=== PATIENT | male | born 1925 | race Caucasian/White ===

== ENCOUNTER 2017-04-16 13:47 | Inpatient (IN) ==
[2017-04-16 14:22] LABS: Basophils # 0.1 10*3/uL (0.0-0.2); Basophils % 0.7 % (0.0-0.8); Eosinophils # 0.3 10*3/uL (0.0-0.87); Eosinophils % 3.3 % (0.00-10.9); Hematocrit 39.2 VOL% (42.0-52.0); Hemoglobin 12.9 GM/DL (14.0-18.0); Immature Granulocytes % 0.3 %; Immature Granulocytes Absolute 0.03 #; Lymphocytes # 2.2 10*3/uL (1.4-4.0); Mean Corpuscular HGB Conc 32.9 GM/DL (32-36); Mean Corpuscular Hemoglobin 31 PG (27-34); Mean Corpuscular Volume 94.2 FL (87-102); Mean Platelet Volume 10.1 FL (9.6-12.0); Monocytes # 0.8 10*3/uL (0.11-0.8); Monocytes % 9.2 % (1.7-12.7); Neutrophils # 5.6 10*3/uL (1.4-7.4); Neutrophils % 62.5 % (38.7-73.9); Platelet Count 240 T/CUMM (130-400); Red Blood Count 4.16 MC/CUMM (3.8-5.5); Red Cell Distribution Width 12.4 % (9.3-17.3)
[2017-04-16 14:52] LABS: Osmolality,Calculated 283.5 MOS/KG (273-304); Potassium 3.5 MMOL/L (3.5-5.1)
[2017-04-16] MEDS ORDERED: ASPIRIN 325 MG TABLET PO STA (14:55)
[2017-04-16] MEDS ORDERED: ASPIRIN 325 MG TABLET ONE (15:09)
[2017-04-16 16:38] LABS: Risk Ratio 3.73; VLDL CHOLESTEROL 20.6 MG/DL
[2017-04-16] MEDS: GABAPENTIN 300 MG CAPSULE PO SCH (20:58)
[2017-04-16] MEDS: clonazePAM 0.5 MG TABLET PO SCH (20:58)
[2017-04-16] MEDS: TEMAZEPAM 15 MG CAPSULE PO SCH (21:00)
[2017-04-16] MEDS ORDERED: ENOXAPARIN 60 MG/0.6 ML SYRINGE SUBCUT ONE (21:28)
[2017-04-17 07:25] LABS: Basophils # 0.1 10*3/uL (0.0-0.2); Basophils % 0.7 % (0.0-0.8); Eosinophils # 0.3 10*3/uL (0.0-0.87); Eosinophils % 3.2 % (0.00-10.9); Hematocrit 40.3 VOL% (42.0-52.0); Hemoglobin 13.2 GM/DL (14.0-18.0); Immature Granulocytes % 0.3 %; Immature Granulocytes Absolute 0.03 #; Lymphocytes # 2.1 10*3/uL (1.4-4.0); Lymphocytes % 21.2 % (21.2-54.2); Mean Corpuscular HGB Conc 32.8 GM/DL (32-36); Mean Corpuscular Hemoglobin 31 PG (27-34); Mean Corpuscular Volume 94.4 FL (87-102); Mean Platelet Volume 9.9 FL (9.6-12.0); Monocytes # 0.8 10*3/uL (0.11-0.8); Monocytes % 8.2 % (1.7-12.7); Neutrophils # 6.5 10*3/uL (1.4-7.4); Neutrophils % 66.4 % (38.7-73.9); Platelet Count 241 T/CUMM (130-400); Red Blood Count 4.27 MC/CUMM (3.8-5.5); Red Cell Distribution Width 12.5 % (9.3-17.3); White Blood Count 9.8 T/CUMM (4-12)
[2017-04-17 07:57] LABS: Albumin 3.7 G/DL (3.4-5.0); Bilirubin,Total 0.6 MG/DL (0.2-1.0); Calcium 9.1 MG/DL (8.5-10.1); Osmolality,Calculated 280.4 MOS/KG (273-304); Potassium 4.1 MMOL/L (3.5-5.1); Total Protein 6.8 G/DL (6.4-8.3)
[2017-04-17 09:29] LABS: CKMB % 6.6 %
[2017-04-17 09:33] LABS: Troponin I Only 1.94 NG/ML (0.00-0.045)
[2017-04-17] MEDS: ASPIRIN EC 325 MG TABLET PO SCH (13:02)
[2017-04-17] MEDS: GABAPENTIN 300 MG CAPSULE PO SCH ×2 (13:02→20:46)
[2017-04-17] MEDS: PANTOPRAZOLE 40 MG TABLET PO SCH (13:02)
[2017-04-17] MEDS: clonazePAM 0.5 MG TABLET PO SCH ×2 (13:02→20:46)
[2017-04-17] MEDS ORDERED: MAGNESIUM SULF RIDER 2 GM in PREMIX 1 EACH IV PRN (15:38)
[2017-04-17] MEDS ORDERED: diphenhydrAMINE CAP 25 MG CAPSULE PO ONE (15:38)
[2017-04-17] MEDS ORDERED: POTASSIUM CHLORIDE RIDER 10 MEQ in PREMIX 1 EACH IV PRN (15:38)
[2017-04-17] MEDS ORDERED: DIAZEPAM 5 MG TABLET PO ONE (15:38)
[2017-04-17] MEDS: TAMSULOSIN 0.4 MG CAPSULE PO SCH (16:34)
[2017-04-17] MEDS: TEMAZEPAM 15 MG CAPSULE PO SCH (20:47)
[2017-04-17] MEDS ORDERED: NON-FORMULARY MEDICATION (Temazepam [Temazepam] 30 MG) PO SCH (21:00)
[2017-04-18] MEDS ORDERED: DEXTROSE 5% NACL 0.45% 1,000 ML IV SCH (04:00)
[2017-04-18 05:14] LABS: Basophils # 0.1 10*3/uL (0.0-0.2); Basophils % 0.7 % (0.0-0.8); Eosinophils # 0.3 10*3/uL (0.0-0.87); Eosinophils % 4.2 % (0.00-10.9); Hematocrit 34.5 VOL% (42.0-52.0); Hemoglobin 11.3 GM/DL (14.0-18.0); Immature Granulocytes % 0.3 %; Immature Granulocytes Absolute 0.02 #; Lymphocytes # 1.6 10*3/uL (1.4-4.0); Lymphocytes % 21.9 % (21.2-54.2); Mean Corpuscular HGB Conc 32.8 GM/DL (32-36); Mean Corpuscular Hemoglobin 31 PG (27-34); Mean Corpuscular Volume 94.3 FL (87-102); Mean Platelet Volume 10.6 FL (9.6-12.0); Monocytes # 0.8 10*3/uL (0.11-0.8); Monocytes % 10.1 % (1.7-12.7); NRBC # 0.04 10*3/uL; Neutrophils # 4.7 10*3/uL (1.4-7.4); Neutrophils % 62.8 % (38.7-73.9); Platelet Count 194 T/CUMM (130-400); Red Blood Count 3.66 MC/CUMM (3.8-5.5); Red Cell Distribution Width 12.4 % (9.3-17.3); White Blood Count 7.4 T/CUMM (4-12)
[2017-04-18 05:53] LABS: Calcium 8.6 MG/DL (8.5-10.1); Osmolality,Calculated 284.3 MOS/KG (273-304); Potassium 3.8 MMOL/L (3.5-5.1)
[2017-04-18] MEDS ORDERED: DIAZEPAM 5 MG TABLET PO ONE (09:00)
[2017-04-18] MEDS ORDERED: diphenhydrAMINE CAP 25 MG CAPSULE PO ONE (09:00)
[2017-04-18] MEDS: PANTOPRAZOLE 40 MG TABLET PO SCH (09:15)
[2017-04-18] MEDS: ASPIRIN EC 325 MG TABLET PO SCH (09:15)
[2017-04-18] MEDS ORDERED: LIDOCAINE 2%/EPI 20 ML VIAL ONE (10:07)
[2017-04-18] MEDS ORDERED: HEPARIN/NACL 0.9% 2 UNITS/ML 2,000 ML IV ONE (10:07)
[2017-04-18] MEDS ORDERED: MIDAZOLAM 2 MG/2 ML VIAL ONE (11:10)
[2017-04-18] MEDS ORDERED: fentaNYL 100 MCG/2 ML VIAL ONE (11:10)
[2017-04-18] MEDS: GABAPENTIN 300 MG CAPSULE PO SCH ×2 (15:29→20:44)
[2017-04-18] MEDS: TAMSULOSIN 0.4 MG CAPSULE PO SCH (15:29)
[2017-04-18] MEDS: clonazePAM 0.5 MG TABLET PO SCH ×2 (15:29→20:44)
[2017-04-18] MEDS: TEMAZEPAM 15 MG CAPSULE PO SCH (20:45)
[2017-04-19] MEDS: TAMSULOSIN 0.4 MG CAPSULE PO SCH (08:26)
[2017-04-19] MEDS: ASPIRIN EC 325 MG TABLET PO SCH (08:26)
[2017-04-19] MEDS: clonazePAM 0.5 MG TABLET PO SCH (08:26)
[2017-04-19] MEDS: GABAPENTIN 300 MG CAPSULE PO SCH (08:26)
[2017-04-19] MEDS: PANTOPRAZOLE 40 MG TABLET PO SCH (08:26)
[2017-04-19] MEDS ORDERED: BISACODYL 5 MG TABLET PO SCH (09:00)
[2017-04-19 09:53] VITALS: BP 96/59
[2017-04-19] MEDS ORDERED: METOPROLOL SUCCINATE XL 25 MG TABLET PO SCH (10:00)
== END 2017-04-19 11:25 | disposition home or self-care (01) | DRG 281 ==
LOC: N.ED 13:47 → SUATTDRO 15:39 → N.EDINP 15:39 → N.TELES 18:52
PROVIDERS: ADMIT Nurse Practitioner; ATTEND Internal Medicine Geriatric Medicine
PROC: CLCCHCL (ICD-10-PCS; 2017-04-18 12:45)